=== PATIENT | male | born 1960 | race Caucasian/White ===

== ENCOUNTER 2021-03-09 09:05 | Emergency (ER) | payer MEDICARE, MEDICAID ==
[~2021-03-09] VITALS: Ht 182.9 cm; Wt 133.2 kg
[~2021-03-09 09:05] MED LIST: ALB0.5UD NEB; BECL8.7A3 IH; CLON-527 PO; ESCI20TA29 PO; METH500T PO; NORCO10T PO; PREG75CA30 PO; TRAM50TA2 PO
[2021-03-09 09:12] VITALS: BP 129/74
[2021-03-09 10:17] LABS: BASOPHILS # (AUTO) 0.1 X10'3 (0-0.2); BASOPHILS % (AUTO) 1.1 % (0-1); EOSINOPHILS # (AUTO) 0.1 X10'3 (0-0.9); EOSINOPHILS % (AUTO) 2.3 % (0-6); HEMATOCRIT 44.1 % (42.0-52.0); HEMOGLOBIN 15.1 g/dl (14.0-17.9); LYMPHOCYTES # (AUTO) 2.5 X10'3 (1.1-4.8); LYMPHOCYTES % (AUTO) 41.2 % (21-51); MEAN CORPUSCULAR HEMOGLOBIN 32.1 PG (27.0-31.0); MEAN CORPUSCULAR HGB CONC 34.3 g/dL (33.0-36.5); MEAN CORPUSCULAR VOLUME 93.4 FL (78-98); MEAN PLATELET VOLUME 7.8 FL (7.4-10.4); MONOCYTES # (AUTO) 0.5 X10'3 (0-0.9); MONOCYTES % (AUTO) 7.3 % (2-12); NEUTROPHILS % (AUTO) 48.1 % (42-75); PLATELET COUNT 208 X10'3 (140-440); RED BLOOD COUNT 4.72 X10'6 (4.70-6.10); RED CELL DISTRIBUTION WIDTH 13.5 % (11.5-14.5); WHITE BLOOD COUNT 6.2 X10'3 (4.5-11.0)
[2021-03-09 10:51] LABS: ALANINE AMINOTRANSFERASE 40 U/L (12-78); ALBUMIN 3.4 G/DL (3.4-5.0); ALKALINE PHOSPHATASE 105 IU/L (46-116); ANION GAP 9 (8-16); ASPARTATE AMINO TRANSFERASE 21 U/L (10-37); BILIRUBIN,TOTAL 0.3 MG/DL (0.1-1.0); BLOOD UREA NITROGEN 12 MG/DL (7-18); BUN/CREATININE RATIO 12.2 (5.4-32.0); CALCIUM 8.5 MG/DL (8.5-10.1); CHLORIDE 104 MMOL/L (99-107); CREATININE 0.98 MG/DL (0.60-1.10); GLUCOSE 235 MG/DL (70-104); POTASSIUM 3.2 MMOL/L (3.5-5.1); SODIUM 137 MMOL/L (135-145); TOTAL PROTEIN 6.7 G/DL (6.4-8.2); eGFR 78 ML/MIN
== END 2021-03-09 11:25 | disposition home or self-care (01) ==
LOC: ER 09:05
DX: R06.02 Shortness of breath (principal); R73.9 Hyperglycemia, unspecified; R42 Dizziness and giddiness; R06.01 Orthopnea; J45.909 Unspecified asthma, uncomplicated; G89.29 Other chronic pain; Z98.890 Other specified postprocedural states; Z79.899 Other long term (current) drug therapy
CPT/HCPCS: 36415; 71045; 80053; 83880; 84484; 85025; 93005; 99285

== ENCOUNTER 2021-05-04 13:35 | Emergency (ER) | payer MEDICARE, MEDICAID ==
[~2021-05-04] VITALS: Ht 182.9 cm; Wt 137.0 kg
--- NOTE | 2021-05-04 13:50 | NUR ---
Pt is awake and alert. C/O substeral cp. Denies sob. Pt has chronic lower back pain and uses crutches to ambulate.
[2021-05-04 14:27] LABS: BASOPHILS # (AUTO) 0.1 X10'3 (0-0.2); EOSINOPHILS # (AUTO) 0.2 X10'3 (0-0.9); HEMATOCRIT 45.1 % (42.0-52.0); HEMOGLOBIN 15.1 g/dl (14.0-17.9); LYMPHOCYTES # (AUTO) 2.4 X10'3 (1.1-4.8); LYMPHOCYTES % (AUTO) 32.8 % (21-51); MEAN CORPUSCULAR HEMOGLOBIN 31.3 PG (27.0-31.0); MEAN CORPUSCULAR HGB CONC 33.4 g/dL (33.0-36.5); MEAN CORPUSCULAR VOLUME 93.6 FL (78-98); MEAN PLATELET VOLUME 7.8 FL (7.4-10.4); MONOCYTES # (AUTO) 0.7 X10'3 (0-0.9); MONOCYTES % (AUTO) 9.1 % (2-12); NEUTROPHILS # (AUTO) 3.9 X10'3 (1.8-7.7); NEUTROPHILS % (AUTO) 54.1 % (42-75); PLATELET COUNT 202 X10'3 (140-440); RED BLOOD COUNT 4.82 X10'6 (4.70-6.10); RED CELL DISTRIBUTION WIDTH 13.2 % (11.5-14.5); WHITE BLOOD COUNT 7.2 X10'3 (4.5-11.0)
[2021-05-04 14:51] LABS: ALANINE AMINOTRANSFERASE 38 U/L (12-78); ALBUMIN 3.4 G/DL (3.4-5.0); ALBUMIN/GLOBULIN RATIO 1.1 (1.1-1.5); ALKALINE PHOSPHATASE 97 IU/L (46-116); ANION GAP 7 (8-16); ASPARTATE AMINO TRANSFERASE 28 U/L (10-37); BILIRUBIN,TOTAL 0.4 MG/DL (0.1-1.0); BLOOD UREA NITROGEN 11 MG/DL (7-18); BUN/CREATININE RATIO 10.9 (5.4-32.0); CALCIUM 8.5 MG/DL (8.5-10.1); CHLORIDE 106 MMOL/L (99-107); CREATININE 1.01 MG/DL (0.60-1.10); GLUCOSE 209 MG/DL (70-104); SODIUM 140 MMOL/L (135-145); TOTAL CARBON DIOXIDE 27.4 MMOL/L (24-32); TOTAL PROTEIN 6.6 G/DL (6.4-8.2); TROPONIN I < 0.04 NG/ML (0.0-0.05); eGFR 75 ML/MIN
--- NOTE | 2021-05-04 18:05 | NUR ---
Pt given and understands d/c instructions. Ambulatory with crutches. IV d/c'd, catheter was intact.
[2021-05-04 18:26] VITALS: BP 122/68
== END 2021-05-04 18:08 | disposition home or self-care (01) ==
LOC: ER 13:35
DX: R07.89 Other chest pain (principal); R53.1 Weakness; R06.02 Shortness of breath; J45.909 Unspecified asthma, uncomplicated; G89.29 Other chronic pain; Z98.890 Other specified postprocedural states; Z79.899 Other long term (current) drug therapy
CPT/HCPCS: 36415; 71045; 80053; 83880; 84484; 85025; 93005; 99285

== ENCOUNTER 2021-05-19 16:59 | Emergency (ER) | payer MEDICARE, MEDICAID ==
[~2021-05-19] VITALS: Ht 182.9 cm; Wt 136.8 kg
[2021-05-19 17:52] LABS: BASOPHILS # (AUTO) 0.1 X10'3 (0-0.2); BASOPHILS % (AUTO) 0.8 % (0-1); EOSINOPHILS # (AUTO) 0.1 X10'3 (0-0.9); EOSINOPHILS % (AUTO) 1.4 % (0-6); HEMATOCRIT 45.4 % (42.0-52.0); HEMOGLOBIN 15.4 g/dl (14.0-17.9); LYMPHOCYTES # (AUTO) 3.3 X10'3 (1.1-4.8); LYMPHOCYTES % (AUTO) 36.6 % (21-51); MEAN CORPUSCULAR HEMOGLOBIN 31.5 PG (27.0-31.0); MEAN CORPUSCULAR HGB CONC 33.9 g/dL (33.0-36.5); MEAN CORPUSCULAR VOLUME 93.2 FL (78-98); MEAN PLATELET VOLUME 7.8 FL (7.4-10.4); MONOCYTES # (AUTO) 0.7 X10'3 (0-0.9); MONOCYTES % (AUTO) 8.3 % (2-12); NEUTROPHILS # (AUTO) 4.8 X10'3 (1.8-7.7); NEUTROPHILS % (AUTO) 52.9 % (42-75); PLATELET COUNT 223 X10'3 (140-440); RED BLOOD COUNT 4.88 X10'6 (4.70-6.10); RED CELL DISTRIBUTION WIDTH 13.6 % (11.5-14.5)
[2021-05-19 18:15] LABS: ALANINE AMINOTRANSFERASE 40 U/L (12-78); ALBUMIN 3.7 G/DL (3.4-5.0); ALBUMIN/GLOBULIN RATIO 1.1 (1.1-1.5); ALKALINE PHOSPHATASE 114 IU/L (46-116); ANION GAP 8 (8-16); ASPARTATE AMINO TRANSFERASE 18 U/L (10-37); BILIRUBIN,TOTAL 0.4 MG/DL (0.1-1.0); BLOOD UREA NITROGEN 12 MG/DL (7-18); BUN/CREATININE RATIO 11.3 (5.4-32.0); CALCIUM 8.6 MG/DL (8.5-10.1); CHLORIDE 103 MMOL/L (99-107); CREATININE 1.06 MG/DL (0.60-1.10); GLUCOSE 176 MG/DL (70-104); POTASSIUM 4.1 MMOL/L (3.5-5.1); SODIUM 139 MMOL/L (135-145); TOTAL CARBON DIOXIDE 27.6 MMOL/L (24-32); TOTAL PROTEIN 7.2 G/DL (6.4-8.2); eGFR 71 ML/MIN
[2021-05-19 18:23] LABS: MAGNESIUM 2.4 MG/DL (1.5-2.4)
[2021-05-20] MEDS ORDERED: ketorolac trometh. 30mg/ml inj. IV ONE (02:45)
[2021-05-20 02:55] VITALS: BP 127/70
== END 2021-05-20 02:56 | disposition home or self-care (01) ==
LOC: ER 17:00
DX: E86.0 Dehydration (principal); R51.9 Headache, unspecified; E11.9 Type 2 diabetes mellitus without complications; J45.909 Unspecified asthma, uncomplicated; G89.29 Other chronic pain; Z98.890 Other specified postprocedural states; Z79.899 Other long term (current) drug therapy
CPT/HCPCS: 36415; 70450; 71045; 80053; 83735; 83880; 84484; 85025; 93005; 96374; 99285; J1885

== ENCOUNTER 2023-01-09 12:57 | Inpatient (IN) | payer BC, MEDICAID ==
[~2023-01-09] VITALS: Ht 182.9 cm; Wt 130.5 kg
--- NOTE | 2023-01-09 13:17 | NUR ---
REPORT RECEIVED FROM ED CHARGE NURSE TACOS; XR TO PT BEDSIDE AT THIS TIME
--- NOTE | 2023-01-09 13:23 | NUR ---
MD JOAQUIN TO PT BEDSIDE AT THIS TIME FOR PT EVALUATION
[2023-01-09 13:27] LABS: BASOPHILS # (AUTO) 0.1 X10'3 (0-0.2); BASOPHILS % (AUTO) 1.4 % (0-1); EOSINOPHILS # (AUTO) 0.3 X10'3 (0-0.9); EOSINOPHILS % (AUTO) 3.9 % (0-6); HEMATOCRIT 45.1 % (42.0-52.0); HEMOGLOBIN 15.3 g/dl (14.0-17.9); LYMPHOCYTES # (AUTO) 2.6 X10'3 (1.1-4.8); LYMPHOCYTES % (AUTO) 37.5 % (21-51); MEAN CORPUSCULAR HEMOGLOBIN 30.7 PG (27.0-31.0); MEAN CORPUSCULAR VOLUME 90.3 FL (78-98); MEAN PLATELET VOLUME 7.7 FL (7.4-10.4); MONOCYTES # (AUTO) 0.6 X10'3 (0-0.9); MONOCYTES % (AUTO) 8.3 % (2-12); NEUTROPHILS # (AUTO) 3.4 X10'3 (1.8-7.7); NEUTROPHILS % (AUTO) 48.9 % (42-75); PLATELET COUNT 218 X10'3 (140-440); RED CELL DISTRIBUTION WIDTH 14.3 % (11.5-14.5)
[2023-01-09] MEDS ORDERED: methylPREDNISolone sod succ 125mg/2ml vial IV ONE (13:30)
[2023-01-09] MEDS ORDERED: albuterol 2.5 MG/3 ML nebule CONTNEB PRN (13:30)
[2023-01-09] MEDS ORDERED: azithromycin/NS 500mg/250ml 250 ML IV ONE (13:30)
[2023-01-09] MEDS ORDERED: CefTRIAXone/D5W-Rocephin 1gm 50 ML IV ONE (13:30)
[2023-01-09] MEDS ORDERED: normal saline 1000ML IV soln IVB ONE ×2 (13:30→16:40)
[2023-01-09 13:58] LABS: ALANINE AMINOTRANSFERASE 36 U/L (12-78); ALBUMIN/GLOBULIN RATIO 1.3 (1.1-1.5); ALKALINE PHOSPHATASE 97 IU/L (46-116); ANION GAP 10 (8-16); ASPARTATE AMINO TRANSFERASE 20 U/L (10-37); BILIRUBIN,TOTAL 0.3 MG/DL (0.1-1.0); BLOOD UREA NITROGEN 12 MG/DL (7-18); BUN/CREATININE RATIO 12.1 (10.0-20.0); CALCIUM 8.8 MG/DL (8.5-10.1); CHLORIDE 107 MMOL/L (99-107); CREATININE 0.99 MG/DL (0.60-1.10); GLUCOSE 210 MG/DL (70-104); SODIUM 141 MMOL/L (135-145); TOTAL CARBON DIOXIDE 24.5 MMOL/L (24-32); TOTAL PROTEIN 7.1 G/DL (6.4-8.2); eGFR 77 ML/MIN
--- NOTE | 2023-01-09 14:09 | NUR ---
RT TO PT BEDSIDE FOR ORDERED BREATHING TX AT THIS TIME
[2023-01-09] MEDS ORDERED: PRED20TA PO ×2 (14:56)
[2023-01-09] MEDS ORDERED: AMOX-117 PO ×2 (14:56)
[2023-01-09] MEDS ORDERED: ALBU8HFA PO ×2 (14:59)
[2023-01-09] MEDS ORDERED: albuterol 2.5 MG/3 ML nebule NEB ONE ×2 (16:40→17:27)
--- NOTE | 2023-01-09 17:36 | NUR ---
RT AT BEDSIDE, SVN TX GIVEN AT 1710, ANOTHER SVN TX WAS ORDERED AT 1727. DR. MCFARLAND MADE AWARE THAT TX HAD ALREADY BEEN GIVEN. PER DR MCFARLAND, OKAY TO DC SECOND TX.
[2023-01-09] MEDS ORDERED: ALBU17AE26 INH (17:40)
[2023-01-09] MEDS ORDERED: NITR0.4T48 SL (17:40)
[2023-01-09] MEDS ORDERED: METO-384 PO (17:46)
[2023-01-09] MEDS ORDERED: METH-348 PO (17:46)
[2023-01-09] MEDS ORDERED: ATOR20TA66 PO (17:46)
[2023-01-09] MEDS ORDERED: EPIN0.3P3 IM (17:46)
[2023-01-09] MEDS ORDERED: METF-438 PO (17:46)
[2023-01-09] MEDS ORDERED: TRAM1TAB7 PO (17:46)
[2023-01-09] MEDS ORDERED: LEVO100T9 PO (17:54)
[2023-01-09] MEDS ORDERED: PANT40TA54 PO (17:54)
[2023-01-09] MEDS ORDERED: ASEN10TA9 SL (17:54)
[2023-01-09] MEDS ORDERED: ARMO250T6 PO (17:54)
[2023-01-09] MEDS ORDERED: ASPI-1397 PO (17:54)
[2023-01-09] MEDS ORDERED: CITA10TA22 PO (17:54)
[2023-01-09] MEDS ORDERED: LOSA25TA41 PO (17:54)
[2023-01-09] MEDS ORDERED: FLO110IN (17:54)
[2023-01-09] MEDS ORDERED: methylphenidate 5mg tablet PO PRN (19:20)
[2023-01-09] MEDS ORDERED: TRAMADOL HCL PO PRN (19:20)
[2023-01-09] MEDS ORDERED: ipratropium/albuterol 3ml nebule NEB PRN (19:20)
[2023-01-09] MEDS ORDERED: ARMODAFINIL 250 MG PO PRN (19:20)
[2023-01-09] MEDS ORDERED: nitroGLYCERIN 0.4mg SUBLingual tab SL PRN (19:20)
[2023-01-09] MEDS ORDERED: ACETAMINOPHEN PO PRN (19:20)
[2023-01-09] MEDS ORDERED: EPINEPHRINE IM PRN (19:20)
[2023-01-09] MEDS: normal saline 1000ml 1,000 ML IV SCH (19:25)
[2023-01-09] MEDS ORDERED: potassium Cl 20 mEq SR tablet PO PRN ×2 (19:25)
[2023-01-09] MEDS ORDERED: acetaminophen 325mg tablet PO PRN ×2 (19:25)
[2023-01-09] MEDS ORDERED: diphenhydrAMINE 25mg capsule PO PRN (19:25)
[2023-01-09] MEDS ORDERED: glucagon, human recombinant 1mg kit SUBCUT PRN (19:25)
[2023-01-09] MEDS ORDERED: dextrose 50%-water 50ml dispensing syringe IV PRN ×2 (19:25)
[2023-01-09] MEDS ORDERED: ondansetron/PF 4mg/2ml inj IV PRN (19:25)
[2023-01-09] MEDS ORDERED: magnesium 2GM in 50ml NS 50 ML IV PRN (19:25)
[2023-01-09] MEDS ORDERED: acetaminophen 650mg rectal suppository RC PRN (19:25)
[2023-01-09] MEDS ORDERED: magnesium 4gm in 100ml NS 100 ML IV PRN (19:25)
[2023-01-09] MEDS ORDERED: PERFLUTREN PROTEIN-A MICROSPHR (Optison) 0.22 MG/ML 3ML VIAL IV ONE (19:25)
[2023-01-09] MEDS ORDERED: magnesium Cl slow-release 64mg tablet PO PRN (19:25)
[2023-01-09] MEDS ORDERED: MESSAGE TO PHARMACY PO ONE (19:25)
[2023-01-09] MEDS ORDERED: bisacodyl 10mg suppository rectal RC PRN (19:25)
[2023-01-09] MEDS ORDERED: magnesium hydroxide 30ml (MOM) UD suspension PO PRN (19:25)
[2023-01-09] MEDS ORDERED: mag hydrox/Alum hydrox/simeth 30ml oral suspension PO PRN (19:25)
[2023-01-09] MEDS ORDERED: potassium Cl 40MEQ/1/2NS 520ml 520 ML IV PRN (19:25)
[2023-01-09] MEDS ORDERED: DEXTROSE 15 GM of carb/4 tabs (each vial/BOTTLE has 4 tablets) PO PRN ×2 (19:25)
[2023-01-09 19:50] LABS: HEMOGLOBIN A1C 7.8 % (4.5-6.2)
[2023-01-09] MEDS: K and/or MAG REPLACEMENT MC SCH (19:50)
[2023-01-09] MEDS ORDERED: fluticasone nasal spray 16GM bottle NS SCH (20:00)
[2023-01-09] MEDS: pantoprazole 40mg Tablet.DR PO SCH (20:30)
[2023-01-09] MEDS: docusate sod 100mg capsule PO SCH (20:30)
[2023-01-09] MEDS: heparin, porcine 5000 units/ml vial SQ SCH (20:31)
[2023-01-09] MEDS: methylPREDNISolone sod succ/PF 40mg inj. IV SCH (20:31)
[2023-01-09] MEDS: asenapine 5mg TAB.SUBL SL SCH (21:00)
[2023-01-09] MEDS: insulin glargine (Lantus) pen - multi-dose SQ SCH (21:20)
--- NOTE | 2023-01-09 22:41 | NUR ---
Patient in room ED 12. I have received report from chuy fernandez and had the opportunity to ask questions and assume patient care.
[2023-01-09 23:05] VITALS: BP 140/79
[2023-01-09] MEDS: ipratropium/albuterol 3ml nebule NEB SCH (23:15)
[2023-01-10 01:53] VITALS: BP 106/39
[2023-01-10] MEDS: methylPREDNISolone sod succ/PF 40mg inj. IV SCH ×4 (02:27→19:04)
[2023-01-10] MEDS: ipratropium/albuterol 3ml nebule NEB SCH ×6 (02:46→22:57)
[2023-01-10] MEDS: normal saline 1000ml 1,000 ML IV SCH ×2 (03:03→12:20)
--- NOTE | 2023-01-10 03:16 | NUR ---
Problems reprioritized. Patient report given, questions answered & plan of care reviewed with tawny fernandez.
--- NOTE | 2023-01-10 03:24 | NUR ---
orientee documentation: I have reviewed and agree with all interventions, assessments performed and documented by tawny fernandez .
--- NOTE | 2023-01-10 06:18 | NUR ---
Problems reprioritized. Patient report given, questions answered & plan of care reviewed with Lori NELSON. Pt stable at shift change.
--- NOTE | 2023-01-10 06:56 | NUR ---
Patient in room PCU 3027. I have received report from Nayely NELSON and had the opportunity to ask questions and assume patient care.
[2023-01-10 07:12] LABS: BASOPHILS % (AUTO) 0.1 % (0-1); EOSINOPHILS % (AUTO) 0 % (0-6); HEMATOCRIT 40.3 % (42.0-52.0); HEMOGLOBIN 13.5 g/dl (14.0-17.9); LYMPHOCYTES # (AUTO) 1.2 X10'3 (1.1-4.8); LYMPHOCYTES % (AUTO) 11.8 % (21-51); MEAN CORPUSCULAR HEMOGLOBIN 30.8 PG (27.0-31.0); MEAN CORPUSCULAR HGB CONC 33.4 g/dL (33.0-36.5); MEAN CORPUSCULAR VOLUME 92.3 FL (78-98); MEAN PLATELET VOLUME 8.1 FL (7.4-10.4); MONOCYTES # (AUTO) 0.1 X10'3 (0-0.9); MONOCYTES % (AUTO) 0.7 % (2-12); NEUTROPHILS # (AUTO) 9.2 X10'3 (1.8-7.7); NEUTROPHILS % (AUTO) 87.4 % (42-75); PLATELET COUNT 186 X10'3 (140-440); RED BLOOD COUNT 4.37 X10'6 (4.70-6.10); RED CELL DISTRIBUTION WIDTH 14.4 % (11.5-14.5); WHITE BLOOD COUNT 10.6 X10'3 (4.5-11.0)
[2023-01-10 07:29] LABS: ALANINE AMINOTRANSFERASE 35 U/L (12-78); ALBUMIN 3.5 G/DL (3.4-5.0); ALBUMIN/GLOBULIN RATIO 1.2 (1.1-1.5); ALKALINE PHOSPHATASE 69 IU/L (46-116); ANION GAP 13 (8-16); ASPARTATE AMINO TRANSFERASE 21 U/L (10-37); BILIRUBIN,TOTAL 0.4 MG/DL (0.1-1.0); BLOOD UREA NITROGEN 11 MG/DL (7-18); CALCIUM 8.8 MG/DL (8.5-10.1); CHLORIDE 105 MMOL/L (99-107); CHOL/HDL RATIO 4.8 (0.00-4.99); CHOLESTEROL 217 MG/DL (0-200); GLUCOSE 264 MG/DL (70-104); HDL CHOLESTEROL 45 MG/DL (35-60); LDL CHOLESTEROL 133 MG/DL (50-100); MAGNESIUM 1.9 MG/DL (1.5-2.4); PHOSPHORUS 3.1 MG/DL (2.3-4.5); POTASSIUM 3.7 MMOL/L (3.5-5.1); SODIUM 138 MMOL/L (135-145); TOTAL CARBON DIOXIDE 19.9 MMOL/L (24-32); TOTAL PROTEIN 6.4 G/DL (6.4-8.2); TRIGLYCERIDES 115 MG/DL (20-135); eGFR 68 ML/MIN
[2023-01-10] MEDS: aspirin 81mg, enteric-coated 1 TAB TABLET.DR PO SCH (07:39)
[2023-01-10] MEDS: docusate sod 100mg capsule PO SCH ×2 (07:39→19:06)
[2023-01-10] MEDS: levoTHYROXINE 100mcg tablet PO SCH (07:39)
[2023-01-10] MEDS: traMADol 50MG tablet PO PRN (07:40)
[2023-01-10] MEDS: pantoprazole 40mg Tablet.DR PO SCH ×2 (07:41→19:04)
[2023-01-10] MEDS: heparin, porcine 5000 units/ml vial SQ SCH ×2 (07:43→19:04)
[2023-01-10] MEDS: metoprolol succinate 25mg (24-HOUR) SR. Tablet PO SCH (07:51)
[2023-01-10] MEDS: losartan 25mg tablet PO SCH (07:52)
[2023-01-10 08:00] VITALS: BP 107/48
[2023-01-10] MEDS ORDERED: CefTRIAXone/D5W-Rocephin 1gm 50 ML IV SCH (08:00)
[2023-01-10] MEDS ORDERED: azithromycin/NS 500mg/250ml 250 ML IV SCH (08:00)
[2023-01-10] MEDS: K and/or MAG REPLACEMENT MC SCH ×2 (08:00→20:00)
[2023-01-10] MEDS: budesonide 0.5mg/2ml UD nebule IH SCH ×2 (08:05→19:48)
[2023-01-10] MEDS ORDERED: normal saline 1000ml 1,000 ML IV ONE ×2 (08:45→11:00)
[2023-01-10] MEDS: CITALOpram 10mg tablet PO SCH (09:20)
--- NOTE | 2023-01-10 11:38 | NUR ---
After a couple minutes into the treatment, pt requested that we stop the treatment d/t his stomach being upset. He stated he believed he ate too much and was becoming nauseated. Tx was stopped. Will return later for 1500 SVN tx Addendum: 01/10/23 at 1139 by Natalie Colvin RT Amended: Links added.
[2023-01-10] MEDS ORDERED: iohexol 350MG/ML 100ml bottle IV ONE (12:06)
[2023-01-10] MEDS: piperacillin/tazo 3.375gm/50ml 50 ML IV SCH ×2 (12:16→17:37)
[2023-01-10] MEDS: vancomycin/NS 1 GM ADD-VANTAGE 250 ML IV SCH (13:01)
[2023-01-10] MEDS: insulin Lispro (HumaLOG) vial - multi-dose SQ SCH ×3 (14:44→21:01)
[2023-01-10] MEDS: MESSAGE TO NURSING PO SCH (15:07)
[2023-01-10 15:12] LABS: CLARITY,URINE CLEAR (Clear); COLOR,URINE STRAW (Yellow); GLUCOSE, URINE >=1000 mg/dl (Neg); KETONES,URINE 15 mg/dl (Neg); LEUKOCYTE ESTERASE ,URINE NEGATIVE (Neg); NITRITES, URINE NEGATIVE (Neg); OCCULT BLOOD,URINE NEGATIVE (Neg); PROTEIN,URINE NEGATIVE (Neg); UROBILINOGEN,URINE 0.2 E.U/dL (0.2-1.0)
[2023-01-10 15:20] LABS: URINE AMPHETAMINE SCREEN NEGATIVE (Neg); URINE BARBITUATE SCREEN NEGATIVE (Neg); URINE BENZODIAZEPINES SCREEN NEGATIVE (Neg); URINE CANNABINOID SCREEN NEGATIVE (Neg); URINE COCAINE SCREEN NEGATIVE (Neg); URINE METHADONE SCREEN NEGATIVE (Neg); URINE OPIATE SCREEN NEGATIVE (Neg); URINE PHENCYCLIDINE SCREEN NEGATIVE (Neg)
--- NOTE | 2023-01-10 15:54 | NUR ---
Per EMR pt with T2DM, fairly well controlled with A1c 7.8%. Per ED note pt takes Metformin BID and pt reports BG at home was 214 mg/dL, first BG at admit was 190 mg/dL. Written DM education with RD contact information placed in patient's chart. Will remain available. Addendum: 01/10/23 at [address] Amended: Links added.
[2023-01-10 16:23] LABS: UA COLLECTION TYPE VOIDED
[2023-01-10 16:24] LABS: SQUAMOUS EPITHELIAL CELL,UR FEW /LPF (FEW)
[2023-01-10 16:25] LABS: MUCUS STRANDS FEW /LPF (Neg)
[2023-01-10 16:26] LABS: BACTERIA,URINE FEW /HPF (Neg); RBC,URINE NONE SEEN /HPF (0-2); WBC,URINE 0-4 /HPF (0-4)
[2023-01-10 17:43] VITALS: BP 102/42
[2023-01-10] MEDS: atorvastatin 20mg tablet PO SCH (20:44)
[2023-01-10] MEDS: asenapine 5mg TAB.SUBL SL SCH (20:45)
[2023-01-10] MEDS: insulin glargine (Lantus) pen - multi-dose SQ SCH (20:50)
[2023-01-11] MEDS: piperacillin/tazo 3.375gm/50ml 50 ML IV SCH ×4 (00:04→23:56)
[2023-01-11 02:00] VITALS: BP 105/55
[2023-01-11] MEDS: ipratropium/albuterol 3ml nebule NEB SCH ×5 (02:55→23:00)
[2023-01-11] MEDS: normal saline 1000ml 1,000 ML IV SCH ×3 (03:21→21:30)
--- NOTE | 2023-01-11 05:21 | NUR ---
Patient appeared unwell Lactic done q 2hrly on day shift ranging from 3.8-6.6. MACL bolus given x2, patient closely monitored. dr Mcknight in attendance. Patient started to trend down . Last lactic was 4.3. ABX changed per Dr Mcknight. Patient sleeping most of shift supervisor rn, appears stable.
--- NOTE | 2023-01-11 06:34 | NUR ---
Problems reprioritized. Patient report given, questions answered & plan of care reviewed with Bettye NELSON.
--- NOTE | 2023-01-11 06:40 | NUR ---
Patient in room PCU 3027. I have received report from caity fernandez and had the opportunity to ask questions and assume patient care.
[2023-01-11 07:16] LABS: BASOPHILS % (AUTO) 0 % (0-1); EOSINOPHILS % (AUTO) 0 % (0-6); HEMATOCRIT 39.5 % (42.0-52.0); HEMOGLOBIN 13.1 g/dl (14.0-17.9); LYMPHOCYTES # (AUTO) 1.2 X10'3 (1.1-4.8); LYMPHOCYTES % (AUTO) 7.3 % (21-51); MEAN CORPUSCULAR HEMOGLOBIN 30.5 PG (27.0-31.0); MEAN CORPUSCULAR HGB CONC 33.3 g/dL (33.0-36.5); MEAN CORPUSCULAR VOLUME 91.6 FL (78-98); MEAN PLATELET VOLUME 8.1 FL (7.4-10.4); MONOCYTES # (AUTO) 0.8 X10'3 (0-0.9); MONOCYTES % (AUTO) 4.8 % (2-12); NEUTROPHILS % (AUTO) 87.9 % (42-75); PLATELET COUNT 193 X10'3 (140-440); RED BLOOD COUNT 4.31 X10'6 (4.70-6.10); RED CELL DISTRIBUTION WIDTH 14.5 % (11.5-14.5)
[2023-01-11 07:42] LABS: ALANINE AMINOTRANSFERASE 32 U/L (12-78); ALBUMIN 3.2 G/DL (3.4-5.0); ALBUMIN/GLOBULIN RATIO 1.2 (1.1-1.5); ALKALINE PHOSPHATASE 64 IU/L (46-116); ANION GAP 7 (8-16); ASPARTATE AMINO TRANSFERASE 21 U/L (10-37); BILIRUBIN,TOTAL 0.4 MG/DL (0.1-1.0); BLOOD UREA NITROGEN 17 MG/DL (7-18); BUN/CREATININE RATIO 17.9 (10.0-20.0); CALCIUM 8.8 MG/DL (8.5-10.1); CHLORIDE 111 MMOL/L (99-107); CREATININE 0.95 MG/DL (0.60-1.10); GLUCOSE 254 MG/DL (70-104); MAGNESIUM 2.4 MG/DL (1.5-2.4); PHOSPHORUS 3.8 MG/DL (2.3-4.5); POTASSIUM 4.3 MMOL/L (3.5-5.1); SODIUM 144 MMOL/L (135-145); TOTAL CARBON DIOXIDE 26.1 MMOL/L (24-32); TOTAL PROTEIN 5.8 G/DL (6.4-8.2); eGFR 81 ML/MIN
[2023-01-11 07:59] VITALS: BP 98/39
[2023-01-11] MEDS: K and/or MAG REPLACEMENT MC SCH ×2 (08:00→20:00)
[2023-01-11] MEDS: metoprolol succinate 25mg (24-HOUR) SR. Tablet PO SCH (08:00)
[2023-01-11] MEDS: MESSAGE TO NURSING PO SCH (08:00)
[2023-01-11] MEDS: losartan 25mg tablet PO SCH (08:00)
[2023-01-11] MEDS: budesonide 0.5mg/2ml UD nebule IH SCH ×2 (08:02→20:00)
[2023-01-11] MEDS: docusate sod 100mg capsule PO SCH ×2 (09:14→19:45)
[2023-01-11] MEDS: aspirin 81mg, enteric-coated 1 TAB TABLET.DR PO SCH (09:15)
[2023-01-11] MEDS: CITALOpram 10mg tablet PO SCH (09:15)
[2023-01-11] MEDS: pantoprazole 40mg Tablet.DR PO SCH ×2 (09:15→19:45)
[2023-01-11] MEDS: methylPREDNISolone sod succ/PF 40mg inj. IV SCH ×2 (09:15→19:46)
[2023-01-11] MEDS: levoTHYROXINE 100mcg tablet PO SCH (09:15)
[2023-01-11] MEDS: heparin, porcine 5000 units/ml vial SQ SCH ×2 (09:16→19:46)
[2023-01-11] MEDS: insulin Lispro (HumaLOG) vial - multi-dose SQ SCH ×3 (09:32→19:51)
[2023-01-11 11:00] VITALS: BP 109/45
[2023-01-11] MEDS ORDERED: ipratropium/albuterol 3ml nebule NEB PRN (11:25)
[2023-01-11] MEDS: vancomycin/NS 1 GM ADD-VANTAGE 250 ML IV SCH ×3 (13:05→23:56)
--- NOTE | 2023-01-11 14:15 | NUR ---
Initial: Pt admit for SOB and lactic acidosis/sepsis possibly secondary to bilat PNA. Currently on a CHO controlled diet with improving PO intake, documented with 25-50% PO intake of first two meals though up to 100% PO intake at two most recent meals. Unfortunately even if pt continues with 100% PO intake of meals this will only meet 77% estimated energy needs and 62% estimated protein needs d/t restrictive diet order. Recommend double protein TID for satiety and to assist with meeting estimated nutrient needs. Per EMR LBM 01/09, pt receiving routine bowel care and with additional PRN bowel care available. Will continue to follow and monitor need for further nutrition intervention pending additional trends in PO intake. Recommendations: 1) Continue CHO controlled diet 2) Double eggs WB, double meat BIDLD for satiety and to assist with meeting estimated nutrient needs 3) Routine bowel care 4) Weekly scaled weights Addendum: 01/11/23 at [address] Amended: Links added.
[2023-01-11 15:00] VITALS: BP 107/45
[2023-01-11 18:00] VITALS: BP 109/50
--- NOTE | 2023-01-11 18:14 | NUR ---
Problems reprioritized. Patient report given, questions answered & plan of care reviewed with jamal fernandez.
--- NOTE | 2023-01-11 18:37 | NUR ---
Problems reprioritized. Patient report given, questions answered & plan of care reviewed with MELVINA NELSON.
--- NOTE | 2023-01-11 18:40 | NUR ---
Patient in room PCU 3027. I have received report from LESLIE Wen and had the opportunity to ask questions and assume patient care.
[2023-01-11] MEDS: atorvastatin 20mg tablet PO SCH (21:14)
[2023-01-11] MEDS: asenapine 5mg TAB.SUBL SL SCH (21:14)
[2023-01-11] MEDS: insulin glargine (Lantus) pen - multi-dose SQ SCH (21:26)
[2023-01-11 22:00] VITALS: BP 108/46
[2023-01-11] MEDS ORDERED: VANCOMYCIN LEVEL IV ONE (23:30)
[2023-01-12] VITALS (7 sets, daily range): BP systolic 97–145; BP diastolic 31–80
[2023-01-12] MEDS: traMADol 50MG tablet PO PRN ×2 (00:07→10:10)
--- NOTE | 2023-01-12 06:27 | NUR ---
Problems reprioritized. Patient report given, questions answered & plan of care reviewed with LESLIE Hall.
[2023-01-12 06:28] LABS: BASOPHILS % (AUTO) 0.1 % (0-1); EOSINOPHILS % (AUTO) 0 % (0-6); HEMATOCRIT 37.8 % (42.0-52.0); HEMOGLOBIN 12.9 g/dl (14.0-17.9); LYMPHOCYTES # (AUTO) 1.3 X10'3 (1.1-4.8); LYMPHOCYTES % (AUTO) 11.3 % (21-51); MEAN CORPUSCULAR HEMOGLOBIN 30.7 PG (27.0-31.0); MEAN CORPUSCULAR HGB CONC 34.1 g/dL (33.0-36.5); MEAN CORPUSCULAR VOLUME 90.2 FL (78-98); MEAN PLATELET VOLUME 8.3 FL (7.4-10.4); MONOCYTES # (AUTO) 0.4 X10'3 (0-0.9); NEUTROPHILS % (AUTO) 85.6 % (42-75); PLATELET COUNT 161 X10'3 (140-440); RED BLOOD COUNT 4.19 X10'6 (4.70-6.10); RED CELL DISTRIBUTION WIDTH 14.3 % (11.5-14.5); WHITE BLOOD COUNT 11.7 X10'3 (4.5-11.0)
[2023-01-12 06:46] LABS: ALANINE AMINOTRANSFERASE 34 U/L (12-78); ALBUMIN 3.2 G/DL (3.4-5.0); ALBUMIN/GLOBULIN RATIO 1.3 (1.1-1.5); ALKALINE PHOSPHATASE 60 IU/L (46-116); ANION GAP 7 (8-16); ASPARTATE AMINO TRANSFERASE 26 U/L (10-37); BILIRUBIN,TOTAL 0.4 MG/DL (0.1-1.0); BLOOD UREA NITROGEN 25 MG/DL (7-18); BUN/CREATININE RATIO 24.3 (10.0-20.0); CALCIUM 8.5 MG/DL (8.5-10.1); CHLORIDE 108 MMOL/L (99-107); CREATININE 1.03 MG/DL (0.60-1.10); GLUCOSE 218 MG/DL (70-104); MAGNESIUM 2.3 MG/DL (1.5-2.4); PHOSPHORUS 4.2 MG/DL (2.3-4.5); POTASSIUM 3.7 MMOL/L (3.5-5.1); SODIUM 143 MMOL/L (135-145); TOTAL CARBON DIOXIDE 28.3 MMOL/L (24-32); TOTAL PROTEIN 5.6 G/DL (6.4-8.2); eGFR 73 ML/MIN
--- NOTE | 2023-01-12 06:57 | NUR ---
Patient in room PCU [id number]. I have received report from Valery NELSON and had the opportunity to ask questions and assume patient care. Pt laying semi fowelrs in bed and is resting comfortably. Pt on RA, no s/s of distress, or s/s of pain a this time. BLL, call light within reach, frequently used items in reach, frequent rounding, structural steel engineer socks on. Will continue to monitor.
[2023-01-12] MEDS: ipratropium/albuterol 3ml nebule NEB SCH ×3 (07:00→22:53)
[2023-01-12] MEDS: budesonide 0.5mg/2ml UD nebule IH SCH ×2 (07:01→20:00)
[2023-01-12] MEDS: normal saline 1000ml 1,000 ML IV SCH ×2 (07:25→19:01)
[2023-01-12] MEDS: aspirin 81mg, enteric-coated 1 TAB TABLET.DR PO SCH (08:00)
[2023-01-12] MEDS: K and/or MAG REPLACEMENT MC SCH ×2 (08:00→20:00)
[2023-01-12] MEDS: MESSAGE TO NURSING PO SCH (08:00)
[2023-01-12] MEDS: insulin Lispro (HumaLOG) vial - multi-dose SQ SCH ×3 (09:59→22:03)
[2023-01-12] MEDS: losartan 25mg tablet PO SCH (10:08)
[2023-01-12] MEDS: levoTHYROXINE 100mcg tablet PO SCH (10:08)
[2023-01-12] MEDS: heparin, porcine 5000 units/ml vial SQ SCH ×2 (10:08→21:41)
[2023-01-12] MEDS: docusate sod 100mg capsule PO SCH ×2 (10:09→21:41)
[2023-01-12] MEDS: pantoprazole 40mg Tablet.DR PO SCH ×2 (10:09→21:41)
[2023-01-12] MEDS: CITALOpram 10mg tablet PO SCH (10:11)
[2023-01-12] MEDS: metoprolol succinate 25mg (24-HOUR) SR. Tablet PO SCH (10:12)
[2023-01-12] MEDS: methylPREDNISolone sod succ/PF 40mg inj. IV SCH ×2 (10:12→21:40)
[2023-01-12] MEDS: piperacillin/tazo 3.375gm/50ml 50 ML IV SCH ×2 (10:13→16:00)
[2023-01-12] MEDS ORDERED: VANCOmycin 1250MG/NS 250ml Bag 250 ML IV SCH (12:00)
[2023-01-12] MEDS: NUT.TX.GLUC.INTOLER,LAC-FR,SOY (GLUCERNA) 237 ML PO SCH (18:21)
--- NOTE | 2023-01-12 18:45 | NUR ---
Patient in room PCU 3027. I have received report from Isabel NELSON and had the opportunity to ask questions and assume patient care.
--- NOTE | 2023-01-12 18:45 | NUR ---
Problems reprioritized. Patient report given, questions answered & plan of care reviewed with Alise CHAMPION.
[2023-01-12] MEDS: asenapine 5mg TAB.SUBL SL SCH (21:00)
[2023-01-12] MEDS: atorvastatin 20mg tablet PO SCH (21:41)
[2023-01-12] MEDS: insulin glargine (Lantus) pen - multi-dose SQ SCH (22:01)
[2023-01-13 02:00] VITALS: BP 138/79
[2023-01-13 06:00] VITALS: BP 124/63
[2023-01-13 06:10] LABS: BASOPHILS % (AUTO) 0.1 % (0-1); EOSINOPHILS % (AUTO) 0 % (0-6); HEMATOCRIT 40.7 % (42.0-52.0); HEMOGLOBIN 13.9 g/dl (14.0-17.9); LYMPHOCYTES # (AUTO) 1.6 X10'3 (1.1-4.8); LYMPHOCYTES % (AUTO) 17.7 % (21-51); MEAN CORPUSCULAR HEMOGLOBIN 30.9 PG (27.0-31.0); MEAN CORPUSCULAR HGB CONC 34.1 g/dL (33.0-36.5); MEAN CORPUSCULAR VOLUME 90.8 FL (78-98); MEAN PLATELET VOLUME 8.3 FL (7.4-10.4); MONOCYTES # (AUTO) 0.5 X10'3 (0-0.9); MONOCYTES % (AUTO) 5.1 % (2-12); NEUTROPHILS # (AUTO) 7.1 X10'3 (1.8-7.7); NEUTROPHILS % (AUTO) 77.1 % (42-75); PLATELET COUNT 168 X10'3 (140-440); RED BLOOD COUNT 4.48 X10'6 (4.70-6.10); RED CELL DISTRIBUTION WIDTH 14.5 % (11.5-14.5); WHITE BLOOD COUNT 9.2 X10'3 (4.5-11.0)
[2023-01-13 06:14] LABS: ALANINE AMINOTRANSFERASE 38 U/L (12-78); ALBUMIN 3.3 G/DL (3.4-5.0); ALBUMIN/GLOBULIN RATIO 1.3 (1.1-1.5); ALKALINE PHOSPHATASE 65 IU/L (46-116); ANION GAP 6 (8-16); ASPARTATE AMINO TRANSFERASE 18 U/L (10-37); BILIRUBIN,TOTAL 0.3 MG/DL (0.1-1.0); BLOOD UREA NITROGEN 24 MG/DL (7-18); BUN/CREATININE RATIO 25.3 (10.0-20.0); CALCIUM 8.6 MG/DL (8.5-10.1); CHLORIDE 105 MMOL/L (99-107); CREATININE 0.95 MG/DL (0.60-1.10); GLUCOSE 258 MG/DL (70-104); MAGNESIUM 2.3 MG/DL (1.5-2.4); PHOSPHORUS 3.8 MG/DL (2.3-4.5); SODIUM 139 MMOL/L (135-145); TOTAL CARBON DIOXIDE 28.3 MMOL/L (24-32); TOTAL PROTEIN 5.9 G/DL (6.4-8.2); eGFR 81 ML/MIN
[2023-01-13] MEDS: piperacillin/tazo 3.375gm/50ml 50 ML IV SCH ×2 (06:30→08:00)
--- NOTE | 2023-01-13 06:43 | NUR ---
Problems reprioritized. Patient report given, questions answered & plan of care reviewed with Isabel NELSON.
--- NOTE | 2023-01-13 06:56 | NUR ---
Patient in room PCU [id number]. I have received report from Alise CHAMPION and had the opportunity to ask questions and assume patient care. Pt went to rest room, and now is bad in bed. Pt on RA. No s/s of distress. PT declines c/o pain at this time. BLL, call light within reach, frequently used items in reach, frequent rounding, water systems engineer socks on. Will continue to monitor.
[2023-01-13] MEDS: ipratropium/albuterol 3ml nebule NEB SCH (07:11)
[2023-01-13] MEDS: budesonide 0.5mg/2ml UD nebule IH SCH (07:11)
[2023-01-13] MEDS: NUT.TX.GLUC.INTOLER,LAC-FR,SOY (GLUCERNA) 237 ML PO SCH (07:30)
[2023-01-13] MEDS: pantoprazole 40mg Tablet.DR PO SCH (07:39)
[2023-01-13] MEDS: aspirin 81mg, enteric-coated 1 TAB TABLET.DR PO SCH (07:39)
[2023-01-13] MEDS: metoprolol succinate 25mg (24-HOUR) SR. Tablet PO SCH (07:39)
[2023-01-13] MEDS: heparin, porcine 5000 units/ml vial SQ SCH (07:39)
[2023-01-13] MEDS: losartan 25mg tablet PO SCH (07:40)
[2023-01-13] MEDS: docusate sod 100mg capsule PO SCH (07:40)
[2023-01-13] MEDS: CITALOpram 10mg tablet PO SCH (07:40)
[2023-01-13] MEDS: levoTHYROXINE 100mcg tablet PO SCH (07:40)
[2023-01-13] MEDS: K and/or MAG REPLACEMENT MC SCH (07:41)
[2023-01-13] MEDS: methylPREDNISolone sod succ/PF 40mg inj. IV SCH (07:41)
[2023-01-13] MEDS: insulin Lispro (HumaLOG) vial - multi-dose SQ SCH (09:15)
[2023-01-13] MEDS: normal saline 1000ml 1,000 ML IV SCH (09:19)
[2023-01-13] MEDS ORDERED: LEVO-65 PO (11:02)
--- NOTE | 2023-01-13 11:07 | NUR ---
Per Dr Cheney. Pt needs to be seen by PT before going home. If cleared by PT then ok to d/c. d/c orders are in.
--- NOTE | 2023-01-13 11:12 | NUR ---
Paged PT [id number]. Valerieer. PT zoë to make sure the patient can d/c. Pends your re-eval. Thx
[2023-01-13 11:49] VITALS: BP 119/55
[2023-01-13] MEDS ORDERED: METF-1203 PO (12:39)
--- NOTE | 2023-01-13 13:06 | NUR ---
Pt DC'd to personal vehicle Daughter driving. PIV to R wrist removed, tip intact. PIV to R FA removed, tip intact. No issues with removal. VSS, Pt afebrile, no issues with medications. Discharge education provided. All discharge questions answered. All belongings left with patient.
[2023-01-13] MEDS ORDERED: VANCOMYCIN LEVEL IV ONE (23:30)
== END 2023-01-13 12:55 | disposition home or self-care (01) | DRG 871 ==
LOC: ER 12:57 → ED HOLD 19:31 → PCU 3S 22:50
PROVIDERS: ADMIT Family Medicine; ATTEND Family Medicine
PROC: 5A09357 Assistance with Respiratory Ventilation, Less than 24 Consecutive Hours, Continuous Positive Airway Pressure (ICD-10-PCS; principal; 2023-01-10)
PROC: B32T1ZZ Computerized Tomography (CT Scan) of Left Pulmonary Artery using Low Osmolar Contrast (ICD-10-PCS; 2023-01-10)
PROC: B3201ZZ Computerized Tomography (CT Scan) of Thoracic Aorta using Low Osmolar Contrast (ICD-10-PCS; 2023-01-10)
PROC: B32S1ZZ Computerized Tomography (CT Scan) of Right Pulmonary Artery using Low Osmolar Contrast (ICD-10-PCS; 2023-01-10)
PROC: BW211ZZ Computerized Tomography (CT Scan) of Abdomen and Pelvis using Low Osmolar Contrast (ICD-10-PCS; 2023-01-10)
PROC: 5A09357 Assistance with Respiratory Ventilation, Less than 24 Consecutive Hours, Continuous Positive Airway Pressure (ICD-10-PCS; 2023-01-11)
PROC: 5A09357 Assistance with Respiratory Ventilation, Less than 24 Consecutive Hours, Continuous Positive Airway Pressure (ICD-10-PCS; 2023-01-12)
DX: A41.9 Sepsis, unspecified organism (principal); J18.9 Pneumonia, unspecified organism; J44.1 Chronic obstructive pulmonary disease with (acute) exacerbation; J44.0 Chronic obstructive pulmonary disease with (acute) lower respiratory infection; E11.65 Type 2 diabetes mellitus with hyperglycemia; E03.9 Hypothyroidism, unspecified; M54.9 Dorsalgia, unspecified; E66.01 Morbid (severe) obesity due to excess calories; E78.5 Hyperlipidemia, unspecified; M54.50 Low back pain, unspecified; Z60.2 Problems related to living alone; G47.33 Obstructive sleep apnea (adult) (pediatric); G89.4 Chronic pain syndrome; I10 Essential (primary) hypertension; Z79.51 Long term (current) use of inhaled steroids; Z79.82 Long term (current) use of aspirin; Z79.84 Long term (current) use of oral hypoglycemic drugs; Z88.2 Allergy status to sulfonamides; Z88.8 Allergy status to other drugs, medicaments and biological substances; Z79.899 Other long term (current) drug therapy; Z68.39 Body mass index [BMI] 39.0-39.9, adult; Z90.49 Acquired absence of other specified parts of digestive tract; Z71.3 Dietary counseling and surveillance
CPT/HCPCS: 36415; 71045; 71275; 74177; 80053; 80061; 80202; 80305; 81001; 82948; 83036; 83605; 83735; 83880; 84100; 84145; 84443; 84484; 85025; 87040; 87081; 93005; 93306; 94640; 94760; 97116; 97161; 97530; 99285; A7015; G0378; J0456; J0696; J1644; J1815; J2543; J2920; J2930; J3370; J3490; J7030; Q9967

== ENCOUNTER 2023-04-01 13:51 | Emergency (ER) | payer BC, MEDICAID ==
[~2023-04-01] VITALS: Ht 182.9 cm; Wt 136.6 kg
[~2023-04-01 13:51] MED LIST changes: -ALB0.5UD NEB; +ALBU17AE26 INH; +ARMO250T6 PO; +ASEN10TA9 SL; +ASPI-1397 PO; +ATOR20TA66 PO; -BECL8.7A3 IH; +CITA10TA22 PO; -CLON-527 PO; +EPIN0.3P3 IM; -ESCI20TA29 PO; +FLO110IN; +LEVO100T9 PO; +LOSA25TA41 PO; +METH-348 PO; -METH500T PO; +METO-384 PO; +NITR0.4T48 SL; -NORCO10T PO; +PANT40TA54 PO; -PREG75CA30 PO; +TRAM1TAB7 PO; -TRAM50TA2 PO
[2023-04-01 14:08] VITALS: TEMP 97.3
[2023-04-01 14:22] LABS: BASOPHILS # (AUTO) 0.1 X10'3 (0-0.2); BASOPHILS % (AUTO) 0.8 % (0-1); EOSINOPHILS # (AUTO) 0.2 X10'3 (0-0.9); EOSINOPHILS % (AUTO) 1.8 % (0-6); HEMATOCRIT 46.4 % (42.0-52.0); HEMOGLOBIN 15.9 g/dl (14.0-17.9); LYMPHOCYTES # (AUTO) 2.9 X10'3 (1.1-4.8); LYMPHOCYTES % (AUTO) 33.6 % (21-51); MEAN CORPUSCULAR HGB CONC 34.3 g/dL (33.0-36.5); MEAN CORPUSCULAR VOLUME 90.5 FL (78-98); MEAN PLATELET VOLUME 8.2 FL (7.4-10.4); MONOCYTES # (AUTO) 0.6 X10'3 (0-0.9); MONOCYTES % (AUTO) 6.9 % (2-12); NEUTROPHILS # (AUTO) 4.9 X10'3 (1.8-7.7); NEUTROPHILS % (AUTO) 56.9 % (42-75); PLATELET COUNT 226 X10'3 (140-440); RED BLOOD COUNT 5.12 X10'6 (4.70-6.10); RED CELL DISTRIBUTION WIDTH 13.7 % (11.5-14.5); WHITE BLOOD COUNT 8.6 X10'3 (4.5-11.0)
[2023-04-01 14:36] LABS: ALANINE AMINOTRANSFERASE 29 U/L (12-78); ALBUMIN 4.1 G/DL (3.4-5.0); ALBUMIN/GLOBULIN RATIO 1.3 (1.1-1.5); ALKALINE PHOSPHATASE 157 IU/L (46-116); ANION GAP 11 (8-16); ASPARTATE AMINO TRANSFERASE 10 U/L (10-37); BILIRUBIN,TOTAL 0.4 MG/DL (0.1-1.0); BLOOD UREA NITROGEN 26 MG/DL (7-18); BUN/CREATININE RATIO 19.8 (10.0-20.0); CALCIUM 9.8 MG/DL (8.5-10.1); CHLORIDE 97 MMOL/L (99-107); CREATININE 1.31 MG/DL (0.60-1.10); POTASSIUM 4.4 MMOL/L (3.5-5.1); SODIUM 134 MMOL/L (135-145); TOTAL CARBON DIOXIDE 25.6 MMOL/L (24-32); TOTAL PROTEIN 7.3 G/DL (6.4-8.2); eCRCL 64 ML/MIN; eGFR 55 ML/MIN
[2023-04-01 14:41] LABS: GLUCOSE 443 MG/DL (70-104)
--- NOTE | 2023-04-01 14:42 | NUR ---
TOOK CRITICAL FROM CHEMISTRY PT'S GLUCOSE IS 443. TABBY DAVIS TRIAGE NURSE NOTIFIED.
[2023-04-01 14:43] LABS: PRO BRAIN NATRIURETIC PEPTIDE 44 PG/ML (0-125)
[2023-04-01] MEDS ORDERED: pantoprazole 40 MG vial IV ONE (16:35)
[2023-04-01 17:06] LABS: LIPASE 102 U/L (73-393)
--- NOTE | 2023-04-01 17:58 | NUR ---
PT STATES THAT HIS CP HAS RTN. RN OBTAINED IV AND REPEAT EKG BEING DONE NOW.
[2023-04-01 17:59] VITALS: BP 129/80; PULSE 74; RESP 13; O2SAT 93
--- NOTE | 2023-04-01 18:04 | NUR ---
PROTONIX NOT IN [facility]. RN CALLED PHARM TO REQ AND THEY WILL DEL.
--- NOTE | 2023-04-01 18:05 | NUR ---
PT BG 443 AT 1407. RN WAS NOT NOTIFIED. RN WILL PERFORM ACCUCK AND NOTIFY MD.
[2023-04-01] MEDS ORDERED: pantoprazole 40 MG/NS 100ML add-vantage BAG IV ONE (18:10)
--- NOTE | 2023-04-01 18:12 | NUR ---
RN NOTIFIED DR KWON THAT PT BG AT 1407 WAS 443 AND REPEAT NOW BG IS 245. PT TAKES METFORMIN 500MG DAILY AT 1100 AND DID NOT TAKE TODAY. PER DR KWON RN MAY ORD PT DAILY DOSE OF 500 MG AND ADMIN NOW.
--- NOTE | 2023-04-01 18:14 | NUR ---
PT C/O NAUSEA PER DR KWON RN MAY ORD 4 MG ZOFRAN IV ONCE.
[2023-04-01] MEDS ORDERED: metFORMIN 500mg tablet PO ONE (18:15)
[2023-04-01] MEDS ORDERED: ondansetron/PF 4mg/2ml inj IV ONE (18:15)
--- NOTE | 2023-04-01 19:54 | NUR ---
iv dc'd pt being discharged dressng applied
== END 2023-04-01 19:57 | disposition home or self-care (01) ==
LOC: ER 13:52
DX: R07.89 Other chest pain (principal); J44.9 Chronic obstructive pulmonary disease, unspecified; Z88.2 Allergy status to sulfonamides; Z79.82 Long term (current) use of aspirin; Z79.899 Other long term (current) drug therapy
CPT/HCPCS: 36415; 71045; 80053; 82948; 83690; 83880; 84484; 85025; 93005; 96365; 96375; 99285; C9113; J2405

== ENCOUNTER 2023-05-25 14:55 | Emergency (ER) | payer BC, MEDICAID ==
[~2023-05-25] VITALS: Ht 182.9 cm; Wt 131.8 kg
[2023-05-25 17:03] LABS: BASOPHILS # (AUTO) 0.1 X10'3 (0-0.2); BASOPHILS % (AUTO) 1.1 % (0-1); EOSINOPHILS # (AUTO) 0.2 X10'3 (0-0.9); EOSINOPHILS % (AUTO) 2.2 % (0-6); HEMATOCRIT 47.8 % (42.0-52.0); HEMOGLOBIN 16.3 g/dl (14.0-17.9); LYMPHOCYTES # (AUTO) 2.5 X10'3 (1.1-4.8); LYMPHOCYTES % (AUTO) 34.9 % (21-51); MEAN CORPUSCULAR HEMOGLOBIN 30.8 PG (27.0-31.0); MEAN CORPUSCULAR HGB CONC 34.1 g/dL (33.0-36.5); MEAN CORPUSCULAR VOLUME 90.1 FL (78-98); MEAN PLATELET VOLUME 8.1 FL (7.4-10.4); MONOCYTES # (AUTO) 0.7 X10'3 (0-0.9); MONOCYTES % (AUTO) 9.5 % (2-12); NEUTROPHILS # (AUTO) 3.8 X10'3 (1.8-7.7); NEUTROPHILS % (AUTO) 52.3 % (42-75); PLATELET COUNT 206 X10'3 (140-440); RED BLOOD COUNT 5.31 X10'6 (4.70-6.10); RED CELL DISTRIBUTION WIDTH 13.2 % (11.5-14.5); WHITE BLOOD COUNT 7.2 X10'3 (4.5-11.0)
[2023-05-25 17:22] LABS: ALANINE AMINOTRANSFERASE 38 U/L (12-78); ALBUMIN 3.9 G/DL (3.4-5.0); ALBUMIN/GLOBULIN RATIO 1.1 (1.1-1.5); ALKALINE PHOSPHATASE 127 IU/L (46-116); ANION GAP 4 (8-16); ASPARTATE AMINO TRANSFERASE 17 U/L (10-37); BILIRUBIN,TOTAL 0.4 MG/DL (0.1-1.0); BLOOD UREA NITROGEN 18 MG/DL (7-18); BUN/CREATININE RATIO 17.1 (10.0-20.0); CALCIUM 9.6 MG/DL (8.5-10.1); CHLORIDE 99 MMOL/L (99-107); CREATININE 1.05 MG/DL (0.60-1.10); GLUCOSE 308 MG/DL (70-104); POTASSIUM 4.2 MMOL/L (3.5-5.1); SODIUM 134 MMOL/L (135-145); TOTAL CARBON DIOXIDE 30.7 MMOL/L (24-32); TOTAL PROTEIN 7.5 G/DL (6.4-8.2); eCRCL 80 ML/MIN; eGFR 72 ML/MIN
[2023-05-25] MEDS ORDERED: insulin Lispro (HumaLOG) vial - multi-dose SQ ONE (19:55)
[2023-05-25] MEDS ORDERED: insulin Lispro (HumaLOG) vial - multi-dose SQ SCH (19:55)
[2023-05-25] MEDS ORDERED: INSU100C10 SQ (19:58)
[2023-05-25 20:22] VITALS: BP 123/72; PULSE 91; RESP 16; TEMP 98.4; O2SAT 95
== END 2023-05-25 18:55 | disposition home or self-care (01) ==
LOC: ER 14:56
DX: E11.65 Type 2 diabetes mellitus with hyperglycemia (principal); J44.9 Chronic obstructive pulmonary disease, unspecified; F12.90 Cannabis use, unspecified, uncomplicated; Z88.5 Allergy status to narcotic agent; Z88.2 Allergy status to sulfonamides; Z79.82 Long term (current) use of aspirin; Z79.899 Other long term (current) drug therapy
CPT/HCPCS: 36415; 80053; 82948; 84484; 85025; 99284; J1815

== ENCOUNTER 2024-12-08 06:35 | Day surgery (SDC) | payer MEDICARE, MEDICAID ==
[2024-12-04 11:11] LABS: BASOPHILS % (AUTO) 0.9 % (0-1); EOSINOPHILS # (AUTO) 0.1 X10'3 (0-0.9); EOSINOPHILS % (AUTO) 2.2 % (0-6); LYMPHOCYTES % (AUTO) 37.3 % (21-51); MEAN CORPUSCULAR HEMOGLOBIN 28.5 PG (27.0-31.0); MEAN CORPUSCULAR HGB CONC 34.2 g/dL (33.0-36.5); MEAN CORPUSCULAR VOLUME 83.3 FL (78-98); MEAN PLATELET VOLUME 7.7 FL (7.4-10.4); MONOCYTES # (AUTO) 0.5 X10'3 (0-0.9); NEUTROPHILS # (AUTO) 2.7 X10'3 (1.8-7.7); NEUTROPHILS % (AUTO) 49.6 % (42-75); PRE OP HEMATOCRIT 40.6 % (42.0-52.0); PRE OP HEMOGLOBIN 13.9 g/dL (14.0-17.9); PRE OP PLATELET COUNT 218 X10'3 (140-440); PRE OP WHITE BLOOD COUNT 5.5 10'3 (4.8-10.8); RED BLOOD COUNT 4.87 X10'6 (4.70-6.10); RED CELL DISTRIBUTION WIDTH 14.7 % (11.5-14.5)
[2024-12-04 11:38] LABS: ALBUMIN 3.5 G/DL (3.4-5.0); ALBUMIN/GLOBULIN RATIO 1.1 (1.1-1.5); ALKALINE PHOSPHATASE 72 IU/L (46-116); BLOOD UREA NITROGEN 20 MG/DL (7-18); BUN/CREATININE RATIO 24.4 (10.0-20.0); CALCIUM 8.4 MG/DL (8.5-10.1); CHLORIDE 105 MMOL/L (99-107); CREATININE 0.82 MG/DL (0.60-1.10); PRE OP ALT 23 U/L (30-65); PRE OP ANION GAP 5 (8-16); PRE OP AST 10 U/L (10-37); PRE OP BILIRUB, TOTAL 0.5 MG/DL (0.0-1.0); PRE OP GLUCOSE 164 MG/DL (70-104); PRE OP POTASSIUM 3.9 MMOL/L (3.4-5.1); PRE OP SODIUM 138 MMOL/L (135-145); TOTAL CARBON DIOXIDE 27.7 MMOL/L (24-32); TOTAL PROTEIN 6.6 G/DL (6.4-8.2); eGFR > 90 ML/MIN
[~2024-12-08] VITALS: Ht 177.8 cm; Wt 132.0 kg
[2024-12-08] MEDS: CEFAZOLIN 3GM/DEXTROSE 150mL 150 ML IV ONE (05:30)
[~2024-12-08 06:35] MED LIST changes: -ARMO250T6 PO; -ASPI-1397 PO; -ATOR20TA66 PO; +CHOL50CA2 PO; -FLO110IN; +INSU100I8 SQ; -LOSA25TA41 PO; -METO-384 PO; +NALO4SPR22 NS; +ONDA-243 PO; +SEMA14TA2 PO; +SOLR150T PO; +SUCR1ORA15 PO; +TRAM-528 PO; -TRAM1TAB7 PO
[2024-12-08] MEDS ORDERED: LIDOcaine 2% (20mg/ml) 5ml vial ONE ×2 (06:47)
[2024-12-08] MEDS ORDERED: BUPIVAcaine/PF 2.5mg/ml (0.25%) 10ml vial ONE (06:48)
[2024-12-08 06:55] VITALS: BP_SYST 139; BP_DIAS 74; BP_DIAS 79; PULSE 80; RESP 16; TEMP 98.4; O2SAT 96
[2024-12-08] MEDS: famotidine 20mg tablet PO ONE (07:19)
[2024-12-08] MEDS: ringers solution, lacted 1,000 ML IV SCH (07:20)
[2024-12-08] MEDS ORDERED: LIDOcaine 1% 30ml preserv. free vial ONE (08:34)
[2024-12-08] MEDS ORDERED: enalaprilat 1.25mg/ml 2ml vial IV PRN (08:35)
[2024-12-08] MEDS ORDERED: labetalol 20mg/4ml (5mg/ml) syringe IV PRN (08:35)
[2024-12-08] MEDS ORDERED: morphine 4 MG/ML inj SYRINge IV PRN (08:35)
[2024-12-08] MEDS ORDERED: morphine 2 MG/ML inj. syringe IV PRN (08:35)
[2024-12-08] MEDS ORDERED: proCHLORperazine 10 MG/2 ml inj IV PRN (08:35)
[2024-12-08] MEDS ORDERED: ondansetron/PF 4mg/2ml inj IV PRN (08:35)
[2024-12-08] MEDS ORDERED: ringers solution, lacted 1,000 ML IV SCH (08:35)
[2024-12-08] MEDS ORDERED: meperidine/PF 25mg/ml syringe IV PRN ×3 (08:35)
[2024-12-08] MEDS ORDERED: fentaNYL/PF 50MCG/1 ML 2ML syringe ONE (08:43)
[2024-12-08] MEDS ORDERED: MIDAZolam 1 MG/ML 5ML VIAL ONE (08:43)
[2024-12-08 10:24] VITALS: BP 133/72; PULSE 90; RESP 16; O2SAT 96
[2024-12-08] MEDS ORDERED: acetaminophen 1,000mg/100ml IV 100 ML IV ONE (10:28)
[2024-12-08 10:30] VITALS: BP 126/73; PULSE 79; RESP 13; O2SAT 93
[2024-12-08 10:40] VITALS: BP 135/80; PULSE 78; RESP 14; O2SAT 95
[2024-12-08 10:50] VITALS: BP 138/80; PULSE 80; RESP 12; O2SAT 97
== END 2024-12-08 10:54 | disposition home or self-care (01) ==
LOC: PAS 06:35
PROVIDERS: ATTEND Orthopaedic Surgery Hand Surgery
DX: M18.12 Unilateral primary osteoarthritis of first carpometacarpal joint, left hand (principal); F41.8 Other specified anxiety disorders; E03.9 Hypothyroidism, unspecified; G40.909 Epilepsy, unspecified, not intractable, without status epilepticus; F31.9 Bipolar disorder, unspecified; Z79.899 Other long term (current) drug therapy; Z79.01 Long term (current) use of anticoagulants; E66.01 Morbid (severe) obesity due to excess calories; J44.9 Chronic obstructive pulmonary disease, unspecified; Z98.890 Other specified postprocedural states; Z88.8 Allergy status to other drugs, medicaments and biological substances; Z90.49 Acquired absence of other specified parts of digestive tract
CPT/HCPCS: 25447; 36415; 80053; 82948; 85025; 93005; A4215; A4618; A6449; A7000; C1713; J0131; J2003; J2250; J3010; J3490; J7030; J7120; Z7506; Z7508; Z7512; Z7610

== ENCOUNTER 2024-12-10 04:59 | Emergency (ER) | payer MEDICARE, MEDICAID ==
[~2024-12-10] VITALS: Ht 177.8 cm; Wt 133.0 kg
--- NOTE | 2024-12-10 06:33 | Physician Documentation ---
History of Present Illness ~ Chief Complaint: Wrist pain Stated Complaint: HAND PAIN Time Seen by MD: 06:09 OK to notify your PCP?: Yes Primary Medical Doctor: John Brown Source: patient, RN/MD, EMS, RN notes reviewed, EMS notes reviewed, old records Mode of Arrival: EMS Exam Limitations: no limitations HPI Patient arrived by ambulance and was brought into bed four. Patient had left thumb surgery by Dr. Faust on Sunday. He was day it was getting swollen and painful so he called the office and was reassured that it was just left thumb surgery had no surgery to his wrist. Patient continues to have worsening swelling so they called the ambulance at four in the morning and decided to come in for evaluation. Denies any fevers or chills. He states it is just very painful. He took the splint off secondary to pain. He says the pain is radiating now to the wrist. He does not check his glucose levels. He denies any fevers or chills no redness just pain and swelling. He was applied ice no relief Tetanus within 5 years: Yes Medication Reconciliation Allergies: Coded Allergies: sulfamethoxazole (Verified Allergy, Unknown, RASH, 04/01/23) trimethoprim (Verified Allergy, Unknown, RASH, 04/01/23) hydromorphone (Verified Adverse Reaction, Unknown, HEADACHE, 12/05/24) STATES "FEELS LIKE HIS HEAD IS GOING TO EXPLODE" WHEN HE TAKES IT Uncoded Allergies: MARIJUANA (Allergy, Severe, THROAT SWELLING, 04/01/23) Scheduled Asenapine (Saphris), 1 TAB SL HS, (Reported) Cholecalciferol (Vitamin D3) (Vitamin D3), 1 CAP PO DAILY, (Reported) Citalopram Hydrobromide (Citalopram Hbr), 1 TAB PO DAILY, (Reported) Insulin Lispro (Humalog), 2 UNITS SQ QID, (Reported) Levothyroxine Sodium (Levothyroxine Sodium), 1 TAB PO QAM, (Reported) Pantoprazole Sodium (Pantoprazole Sodium), 1 TAB PO BID, (Reported) Semaglutide (Rybelsus), 1 TAB PO QAM, (Reported) Solriamfetol HCl (Sunosi), 1 TAB PO DAILY, (Reported) Sucralfate (Sucralfate), 10 ML PO BID, (Reported) Scheduled PRN Albuterol (Albuterol), 2 PUFF INH Q4H PRN for SOB or wheezing, (Reported) Epinephrine (Epipen 2-Ghassan), 0.3 ML IM DAILY PRN for ALLERGIC REACTION TO BEE STING, (Reported) Methylphenidate HCl (Methylphenidate HCl), 1 TAB PO BID PRN for TO STAY AWAKE, (Reported) Naloxone HCl (Naloxone HCl), 1 APPLIC NS PRN PRN for OPIOID OVERDOSE, (Reported) Nitroglycerin (Nitroglycerin), 1 TAB SL Q4H PRN for PRIOR TO ACTIVITY, (Reported) ONDANSETRON ODT 4mg tablet (Ondansetron Odt), 1 TAB PO Q6H PRN for nausea/vomiting, (Reported) Tramadol Hcl/Acetaminophen* (Ultracet*), 1 TAB PO Q6H PRN for pain, (Reported) Discontinued Medications Armodafinil (Armodafinil), 1 TAB PO BID PRN for TO STAY AWAKE, (Reported) Discontinued Reason: Other Aspirin (Aspirin EC), 1 TAB PO DAILY, (Reported) Discontinued Reason: Other Atorvastatin Calcium (Atorvastatin Calcium), 1 TAB PO DAILY, (Reported) Discontinued Reason: Other Fluticasone Propionate (Flovent Hfa), 2 PUFFS BID, (Reported) Discontinued Reason: Other Insulin Lispro (Humalog), 5 UNITS SQ TIDWM Discontinued Reason: Other Losartan Potassium (Losartan Potassium), 1 TAB PO DAILY, (Reported) Discontinued Reason: Other Metoprolol Succinate (Metoprolol Succinate), 1 TAB PO DAILY, (Reported) Discontinued Reason: Other albuterol inhaler (Pro-Air Inhaler), (Reported) Discontinued Reason: Other Past Medical History Past Medical History: Arrhythmia, Asthma, COPD, Pulmonary Fibrosis, Sleep Apnea, Gastritis, Diabetes, Thyroid (unspecified), Chronic Pain, Chronic Back Pain, Anxiety Past Surgical History: other Smoking Status: Never smoker Alcohol Use: None Drug Use: none Lives In: Home Occupation: disabled Review of Systems All Other Systems at this time: Reviewed and Negative Physical Exam Vital Signs: RN Vital Signs have been reviewed: Yes, Temperature: 98.5, Source: Oral, Heart Rate: 92, Respiratory Rate: 14, BP: 131/80, Pulse Oximetry: 94, Weight: 133.000 Physical Exam General: The patient is well developed, well nourished, nontoxic appearing and is in no acute distress. Skin: [place], warm and dry with no rashes. HEENT: Head was normocephalic and atraumatic. Eyes - pupils equal, round, reactive to light and accommodation. Extraocular movements were intact. Conjunctivae were nonicteric. The mouth and oropharynx were clear with moist mucous membranes. Neck: Supple and nontender. Chest: Clear to auscultation bilaterally without wheezes, rales or rhonchi. No accessory muscle use. Heart: Rate regular and rhythmic. S1, S2. No murmurs. Palpation of the chest wall was normal. Abdomen: Soft, nontender and nondistended. Positive bowel sounds. No guarding or rebound. Extremities: No cyanosis, clubbing or edema. The patient moves all extremities. Pulses were equal and symmetric. Left upper extremity web roll is still in place as well as the thumb covered with web roll. The dorsum of the hand does not show any erythema or ecchymosis but there is soft tissue swelling from the thumb extending to the wrist and the dorsum of the hand. Normal temperature to palpation of the skin Neurologic: Motor sensory grossly Psychologic: The patient was oriented to person, place and time. The patient demonstrated appropriate judgement and insight. Progress Results/Orders Reviewed/noted all lab results: Yes Results/Orders Orders - ANA ROSA REESE MD Finger(S) (12/10/24 06:40) Procalcitonin (12/10/24 06:52) ESR (12/10/24 06:52) Potassium Cl Sr Tablet (K-Dur Tablet) (12/10/24 08:10) Magnesium Oxide Tablet (Mag-Ox 400mg Tab (12/10/24 08:10) Completed Orders - ANA ROSA REESE MD Cbc/Diff (12/10/24 06:40) Ethanol (12/10/24 06:40) MG (12/10/24 06:40) CMP (12/10/24 06:40) Finger(S) (12/10/24 06:40) C-Reactive Protein (12/10/24 06:52) Vital Signs 12/10/24 12/10/24 12/10/24 12/10/24 05:02 06:33 07:02 07:41 Temp 98.5 Pulse 92 83 81 Resp 14 16 16 B/P (MAP) 131/80 138/68 (91) 138/83 (101) Pulse Ox 94 97 95 O2 Flow Rate 3.0 3.0 Laboratory Tests Test 12/10/24 07:15 White Blood Count 9.2 Red Blood Count 4.53 L Hemoglobin 12.9 L Hematocrit 37.8 L Mean Corpuscular Volume 83.4 Mean Corpuscular Hemoglobin 28.6 Mean Corpuscular Hemoglobin Concent 34.2 Red Cell Distribution Width 14.5 Platelet Count 185 Mean Platelet Volume 7.7 Neutrophils (%) (Auto) 65.8 Lymphocytes (%) (Auto) 21.4 Monocytes (%) (Auto) 10.8 Eosinophils (%) (Auto) 1.4 Basophils (%) (Auto) 0.6 Neutrophils # (Auto) 6.0 Lymphocytes # (Auto) 2.0 Monocytes # (Auto) 1.0 H Eosinophils # (Auto) 0.1 Basophils # (Auto) 0.1 CBC Comment Sodium Level 138 Potassium Level 3.4 L Chloride Level 103 Carbon Dioxide Level 29.4 Anion Gap 6 L Blood Urea Nitrogen 11 Creatinine 0.73 Estimated GFR/1.73 m2 > 90 BUN/Creatinine Ratio 15.1 Glucose Level 181 H Calcium Level 8.2 L Magnesium Level 1.9 Total Bilirubin 0.6 Aspartate Amino Transf (AST/SGOT) 14 Alanine Aminotransferase (ALT/SGPT) 18 Alkaline Phosphatase 70 C-Reactive Protein 1.74 H Total Protein 6.4 Albumin 3.4 Globulin 3.0 Albumin/Globulin Ratio 1.1 Chemistry Comments Ethyl Alcohol Level < 10 Re-Evaluation Re-Evaluation : Re-Evaluation: Improved Progress Patient was seen and examined. Patient was given reassurance. Patient was told to elevate his hand. There was loss of soft tissue swelling most likely secondary to postsurgical swelling. Fortunately I do not see any erythema or warmth to suggest any infection. Laboratory work was obtained. Laboratory work did not show any leukocytosis or signs of infection. Inflammatory markers are slightly elevated from surgery otherwise patient appears well. Glucose is slightly elevated at 181. Patient was told to control his glucose levels a bit better. Patient was then discharged home. He was informed elevate elevate elevate EKG/XRAY/CT/US/VASC/MRI Bone/Soft Tissue X-Ray (Ext.) : Additional Comment DI FINGER(S), INDICATION: thumb surgery left TECHNICAL DATA: Frontal, lateral and oblique views of the left thumb were obtained. COMPARISON: None FINDINGS: No fracture is identified. Trapezium is absent. There are screws in the proximal 1st and 2nd metacarpals. There is a splint overlying the thumb. There is 2nd and 3rd distal interphalangeal joint space narrowing. IMPRESSION: 1. No acute fracture dislocation in the left thumb. Postsurgical changes at the base of the thumb as described. Electronically Signed by:ALLEN STEPHENS MD Date & Time: 12/10/24 0712 Medical Decision Making Additional info obtained from: old records Hand Diff Dx:Considerations: Include: Contusion, DJD, Fracture-carpal, Fracture-metacarpal, Fracture-phalynx, Fracture-radius, Fracture-ulna, Gout, Hematoma, Laceration, Neurovascular injury, Septic, Cellulitis, Malunion, Other Departure Disposition: 01 HOME / SELF CARE / HOMELESS Impression: Primary Impression: Postoperative edema Additional Impression: Hyperglycemia Discharge Instructions: Edema, [id number], Wrist Pain, Adult Referrals: NO PRIMARY CARE PROVIDER (PCP) Education Educated: Patient Educated regarding: diagnosis, prognosis, need for follow up Signature Scribe Signature: No scribed Attestation: The note accurately reflects work and decisions made by me.Ana Rosa Reese MD 12/10 06:33 ANA ROSA REESE MD Dec 10, 2024 06:33
--- NOTE | 2024-12-10 07:14 | RADIOLOGY REPORT ---
DI FINGER(S), INDICATION: thumb surgery left TECHNICAL DATA: Frontal, lateral and oblique views of the left thumb were obtained. COMPARISON: None FINDINGS: No fracture is identified. Trapezium is absent. There are screws in the proximal 1st and 2nd metacarp als. There is a splint overlying the thumb. There is 2nd and 3rd distal interphalangeal joint space n arrowing. IMPRESSION: 1. No acute fracture dislocation in the left thumb. Postsurgical changes at the base of the thumb as described.
[2024-12-10 07:36] LABS: BASOPHILS # (AUTO) 0.1 X10'3 (0-0.2); BASOPHILS % (AUTO) 0.6 % (0-1); EOSINOPHILS # (AUTO) 0.1 X10'3 (0-0.9); EOSINOPHILS % (AUTO) 1.4 % (0-6); HEMATOCRIT 37.8 % (42.0-52.0); HEMOGLOBIN 12.9 g/dl (14.0-17.9); LYMPHOCYTES % (AUTO) 21.4 % (21-51); MEAN CORPUSCULAR HEMOGLOBIN 28.6 PG (27.0-31.0); MEAN CORPUSCULAR HGB CONC 34.2 g/dL (33.0-36.5); MEAN CORPUSCULAR VOLUME 83.4 FL (78-98); MEAN PLATELET VOLUME 7.7 FL (7.4-10.4); MONOCYTES % (AUTO) 10.8 % (2-12); NEUTROPHILS % (AUTO) 65.8 % (42-75); PLATELET COUNT 185 X10'3 (140-440); RED BLOOD COUNT 4.53 X10'6 (4.70-6.10); RED CELL DISTRIBUTION WIDTH 14.5 % (11.5-14.5); WHITE BLOOD COUNT 9.2 X10'3 (4.5-11.0)
[2024-12-10 07:54] LABS: ALANINE AMINOTRANSFERASE 18 U/L (12-78); ALBUMIN 3.4 G/DL (3.4-5.0); ALBUMIN/GLOBULIN RATIO 1.1 (1.1-1.5); ALKALINE PHOSPHATASE 70 IU/L (46-116); ANION GAP 6 (8-16); ASPARTATE AMINO TRANSFERASE 14 U/L (10-37); BILIRUBIN,TOTAL 0.6 MG/DL (0.1-1.0); BLOOD UREA NITROGEN 11 MG/DL (7-18); BUN/CREATININE RATIO 15.1 (10.0-20.0); C-REACTIVE PROTEIN 1.74 MG/DL (0.0-0.5); CALCIUM 8.2 MG/DL (8.5-10.1); CHLORIDE 103 MMOL/L (99-107); CREATININE 0.73 MG/DL (0.60-1.10); ETHANOL < 10 MG/DL (<10); GLUCOSE 181 MG/DL (70-104); MAGNESIUM 1.9 MG/DL (1.5-2.4); POTASSIUM 3.4 MMOL/L (3.5-5.1); SODIUM 138 MMOL/L (135-145); TOTAL CARBON DIOXIDE 29.4 MMOL/L (24-32); TOTAL PROTEIN 6.4 G/DL (6.4-8.2); eCRCL 107 ML/MIN; eGFR > 90 ML/MIN
[2024-12-10 08:20] VITALS: BP 164/96; PULSE 86; RESP 18; O2SAT 98
[2024-12-10 08:21] VITALS: TEMP 98.5
[2024-12-10] MEDS: potassium Cl 20 mEq SR tablet PO ONE (08:23)
[2024-12-10] MEDS: magnesium oxide 400mg tablet PO ONE (08:23)
== END 2024-12-10 08:29 | disposition home or self-care (01) ==
LOC: ER 05:00
DX: R60.9 Edema, unspecified (principal); E11.65 Type 2 diabetes mellitus with hyperglycemia; G47.30 Sleep apnea, unspecified; J44.9 Chronic obstructive pulmonary disease, unspecified; Z88.1 Allergy status to other antibiotic agents; Z88.2 Allergy status to sulfonamides; Z88.5 Allergy status to narcotic agent
CPT/HCPCS: 36415; 73140; 80053; 83735; 84145; 85025; 85651; 86140; 99284; A4615; G0480; 80320

== ENCOUNTER 2025-07-15 09:07 | Emergency (ER) | payer MEDICARE, MEDICAID ==
[~2025-07-15] VITALS: Ht 177.8 cm; Wt 140.0 kg
--- NOTE | 2025-07-15 09:50 | RADIOLOGY REPORT ---
CLINICAL INDICATION: FOOT PAIN TECHNIQUE: 3 radiographic views of the right foot were obtained. Comparison: None FINDINGS/IMPRESSION: Mildly displaced fracture of the 4th metatarsal head.
--- NOTE | 2025-07-15 09:53 | Physician Documentation ---
History of Present Illness ~ Chief Complaint: Foot pain Stated Complaint: R FOOT PAIN Time Seen by MD: 09:32 Primary Medical Doctor: Delfino Chávez Source: patient Mode of Arrival: Wheelchair Exam Limitations: no limitations HPI 65-year-old male ambulates primarily with a motorized scooter [place] and in his scooter was pulling a wagon so his feet were to the side he was not able to due to what he was doing to notice a pillar which he hit with his right ankle. Patient is complaining of right ankle pain and swelling. Tetanus witin 5 years: No (unk) Medication Reconciliation Allergies: Coded Allergies: sulfamethoxazole (Verified Allergy, Unknown, RASH, 07/15/25) trimethoprim (Verified Allergy, Unknown, RASH, 07/15/25) hydromorphone (Verified Adverse Reaction, Unknown, HEADACHE, 07/15/25) STATES "FEELS LIKE HIS HEAD IS GOING TO EXPLODE" WHEN HE TAKES IT Uncoded Allergies: MARIJUANA (Allergy, Severe, THROAT SWELLING, 04/01/23) Scheduled Asenapine (Saphris), 1 TAB SL HS, (Reported) Cholecalciferol (Vitamin D3) (Vitamin D3), 1 CAP PO DAILY, (Reported) Citalopram Hydrobromide (Citalopram Hbr), 1 TAB PO DAILY, (Reported) Insulin Lispro (Humalog), 2 UNITS SQ QID, (Reported) Levothyroxine Sodium (Levothyroxine Sodium), 1 TAB PO QAM, (Reported) Pantoprazole Sodium (Pantoprazole Sodium), 1 TAB PO BID, (Reported) Semaglutide (Rybelsus), 1 TAB PO QAM, (Reported) Solriamfetol HCl (Sunosi), 1 TAB PO DAILY, (Reported) Sucralfate (Sucralfate), 10 ML PO BID, (Reported) Scheduled PRN Albuterol (Albuterol), 2 PUFF INH Q4H PRN for SOB or wheezing, (Reported) Epinephrine (Epipen 2-Ghassan), 0.3 ML IM DAILY PRN for ALLERGIC REACTION TO BEE STING, (Reported) Methylphenidate HCl (Methylphenidate HCl), 1 TAB PO BID PRN for TO STAY AWAKE, (Reported) Naloxone HCl (Naloxone HCl), 1 APPLIC NS PRN PRN for OPIOID OVERDOSE, (Reported) Nitroglycerin (Nitroglycerin), 1 TAB SL Q4H PRN for PRIOR TO ACTIVITY, (Reported) ONDANSETRON ODT 4mg tablet (Ondansetron Odt), 1 TAB PO Q6H PRN for nausea/vomiting, (Reported) Tramadol Hcl/Acetaminophen* (Ultracet*), 1 TAB PO Q6H PRN for pain, (Reported) Past Medical History Past Medical History: Arrhythmia, Asthma, COPD, Pulmonary Fibrosis, Sleep Apnea, Gastritis, Diabetes, Thyroid (unspecified), Chronic Pain, Chronic Back Pain, Anxiety Past Surgical History: other Alcohol Use: None Drug Use: none Lives In: Home Occupation: disabled Review of Systems All Other Systems at this time: Reviewed and Negative Musculoskeletal: Reports: see HPI Physical Exam Vital Signs: RN Vital Signs have been reviewed: Yes, Temperature: 98.4, Source: Oral, Heart Rate: 84, Respiratory Rate: 16, BP: 122/65, Pulse Oximetry: 95, Weight: 140.000 Oxygen Flow Rate: 0 Physical Exam General: Alert, no apparent distress. HEENT: PERRL, EOMI, no injection, moist mucous membranes. Neck: Full range of motion. Respiratory: Lungs clear, no respiratory distress. Chest: No accessory muscle use. Cardiovascular: Regular rate and rhythm, no murmurs. Extremities: Reduced range of motion of right ankle pain to the lateral malleolus minimal bruising moderate swelling +2 pedal pulses Neurologic: Oriented x4. Psychiatric: Normal mood and affect. Skin: Normal color, warm and dry. No edema, no ecchymosis. Progress Results/Orders Results/Orders Vital Signs 07/15/25 09:11 Temp 98.4 Pulse 84 Resp 16 B/P (MAP) 122/65 Pulse Ox 95 O2 Flow Rate 0 EKG/XRAY/CT/US/VASC/MRI Bone/Soft Tissue X-Ray (Ext.) : Additional Comment CLINICAL INDICATION: FOOT PAIN TECHNIQUE: 3 radiographic views of the right foot were obtained. Comparison: None FINDINGS/IMPRESSION: Mildly displaced fracture of the 4th metatarsal head. Medical Decision Making Additional information obtaine: N/A Findings X-ray to evaluate for any osseous abnormality. Sprain versus fracture as differentials mildly displaced metatarsal fracture postop boot placed orthopedic referral General Diff Dx:Considerations: Include: Abrasion, Contusion, Fracture, Sprain Knee Diff Dx:Considerations: Include: Other Ankle Diff Dx:Considerations: Include: Abrasion, Contusion, Open fracture, Sprain Foot Diff Dx:Considerations: Include: Other Toe Diff Dx:Considerations: Include: Other Departure Time of Disposition: 10:00 Disposition: 01 HOME / SELF CARE / HOMELESS Impression: Primary Impression: Ankle sprain Additional Impression: Fracture of foot Condition: Stable Discharge Instructions: Sprains, Fracture, Foot Additional Instructions: Small fracture to the metatarsal which is the bone connecting to your toe. Wear the walking boot and call [facility] to evaluate for further treatment. Take Tylenol or ibuprofen as needed for comfort. Referrals: NO PRIMARY CARE PROVIDER (PCP) Prescriptions Ibuprofen (Ibu) 800 Mg Tablet 1 TAB PO Q8H for 7 Days, #21 TAB 0 Refills Prov: KRISTIN MARTINS NP 07/15/25 Education Educated: Patient Educated regarding: diagnosis, treatment, need for follow up Signature Scribe Signature: No scribe Attestation: The note accurately reflects work and decisions made by me.Kristin REDDY 07/15/25 09:54 KRISTIN MARTINS NP Jul 15, 2025 09:53
[2025-07-15] MEDS ORDERED: IBUP-864 PO (10:01)
[2025-07-15] MEDS: ibuprofen tablet 400 MG TABLET PO ONE (10:07)
[2025-07-15 10:27] VITALS: BP 163/82; PULSE 85; RESP 18; TEMP 98.4; O2SAT 95
== END 2025-07-15 10:33 | disposition home or self-care (01) ==
LOC: ER 09:07
DX: S92.341A Displaced fracture of fourth metatarsal bone, right foot, initial encounter for closed fracture (principal); J44.9 Chronic obstructive pulmonary disease, unspecified; F41.9 Anxiety disorder, unspecified; E11.9 Type 2 diabetes mellitus without complications; G47.30 Sleep apnea, unspecified; G89.29 Other chronic pain; Z87.19 Personal history of other diseases of the digestive system; Z88.5 Allergy status to narcotic agent; Z88.2 Allergy status to sulfonamides; Z88.8 Allergy status to other drugs, medicaments and biological substances; Z79.899 Other long term (current) drug therapy; Z79.4 Long term (current) use of insulin; V89.2XXA Person injured in unspecified motor-vehicle accident, traffic, initial encounter; Y93.89 Activity, other specified; Y92.89 Other specified places as the place of occurrence of the external cause; Y99.8 Other external cause status
CPT/HCPCS: 73630; 99283; L3260